=== PATIENT | female | born 1950 | race Caucasian/White ===

== ENCOUNTER 2016-08-02 14:37 | Observation (INO) | payer MEDICARE ==
[2016-08-02 17:06] LABS: AUTOMATED BASOPHIL 1.3 % (0-2); AUTOMATED EOSINOPHIL 0.6 % (0-5); AUTOMATED LYMPH 37.3 % (17-44); AUTOMATED NEUTROPHIL 50.8 % (45-76); MPV 10.9 fL (7.4-10.4)
[2016-08-02 17:22] LABS: BLOOD UREA NITROGEN 33 MG/DL (7-17); CALCIUM 9.6 MG/DL (8.4-10.2); CALCULATED OSMOLALITY 281 MOs/Kg (270-290); CHLORIDE 104 mEq/L (98-107); ETOH-MGDL < 10 mg/dL; GLUCOSE 122 MG/DL (70-99); SODIUM LEVEL 142 mEq/L (137-146); TOTAL PROTEIN 8.4 G/DL (6.3-8.2)
[2016-08-02 18:32] LABS: LEUKOCYTES/URINE NEG (NEGATIVE); NITRITE/URINE NEG (NEGATIVE); URINE OCCULT BLOOD NEG (NEG/TRACE)
[2016-08-02 18:34] LABS: AMORPHOUS 3+
[2016-08-02 18:41] LABS: ALL NEG? YES; MDMA* NEG (NEGATIVE); METHAMPHETAMINES NEG (NEGATIVE); OXYCODONE NEG (NEGATIVE)
--- NOTE | 2016-08-02 20:10 | EDPRACDOC ---
- General Information Chief Complaint: Psychiatric Illness Stated Complaint: PSYCH Time Seen by Provider: 08/02/16 19:54 Mode of Arrival: Law Enforcement Home Medications: Home Medications Digoxin [Lanoxin, Digitek] 0.125 mg PO DAILY #30 tablet 03/24/13 Pravastatin Sodium 40 mg PO QHS 07/23/14 Albuterol Sulfate [Proventil Hfa] 2 puff INH Q4-6H PRN 03/16/16 Pantoprazole Sodium [Protonix] 40 mg PO DAILY 05/24/16 Divalproex Sodium [Depakote ER] 500 mg PO BID #60 tab.sr.24h 05/25/16 Fluphenazine [Prolixin] 5 mg PO BID 08/02/16 Gabapentin 300 mg PO QAM 08/02/16 Gabapentin [Neurontin] 600 mg PO HS 08/02/16 Melatonin/Pyridoxine [Melatonin 3 mg Tablet] 6 mg PO .1HR PRIOR TO HS 08/02/16 Metoprolol Tartrate [Lopressor] 12.5 mg PO BID 08/02/16 Allergies/Adverse Reactions: Allergies Allergy/AdvReac Type Severity Reaction Status Date / Time amoxicillin trihydrate Allergy Unknown Rash-Genera Verified 08/02/16 16:41 [From Amoxil] lized lithium [[place]] Allergy Unknown Unknown Verified 08/02/16 16:41 Sulfa (Sulfonamide Allergy Unknown Unknown Verified 08/02/16 16:41 Antibiotics) [Sulfa(Sulfonamide Antibiotics)] trimethoprim Allergy Unknown Unknown Verified 08/02/16 16:41 - History of Present Illness Onset: today HPI: PT PRESENTS TODAY WITH IVC PAPERS FOR BIZARRE BEHAVIOR. PT IS NON-COMPLIANT WITH MEDICATIONS AND IS CURRENTLY SPEAKING IN SENTENCES THAT MAKE NO SENSE. "HARD LABOR. BLOOD EVERYWHERE." NO APPARENT DISTRESS. PT APPEARS TO BE RESPONDING TO INTERNAL STIMULI. Reason for Seeking Treatment: 911 Call Presents With: Reports: Bizarre Behavior Expresses: Reports: None Suicidal Plan: Reports: None Relevant History: Reports: Schizophrenia, Inpatient Treatment, Outpatient Treatment Medication Compliance: No Associated Signs and Symptoms: Reports: None ED Past Medical History - History Reviewed Yes Nurses notes reviewed and agree except as marked - Patient Medical History Neurological History: Reports: Cerebrovascular Accident (3 1/2 years ago) Cardiac History: Reports: Atrial Fibrillation, Hypertension, Hypercholesterolemia Respiratory History: Reports: Asthma, Emphysema GI/ History: Reports: Urinary Tract Infection, Gastroesophageal Reflux Psychological History: Reports: Depression, Anxiety, Bipolar Disorder. Denies: Substance Use Disorder Systemic History: Reports: Anemia. Denies: Cancer Surgical History: Reports: Other (repair of cleft lip & palate) - Family Medical History Reports: Hypertension (Father), Cardiac Disorders - Social Medical History Smoking Status: Heavy tobacco smoker (5 or more cigarettes/day or daily pipe/ cigar) Social History: Denies: Substance Use Disorder EDM Review of Systems - Review of Systems ROS Negative Except as Marked: Yes All systems reviewed and were negative except as marked ROS Unobtainable: Yes Review of systems cannot be obtained due to the patient's medical condition - Physical Exam Constitutional: No apparent distress, Alert Oriented to: Unable to Test Last recorded Vital Signs: Last Vital Signs Temp 98.1 F 08/02/16 16:41 Pulse 107 08/02/16 16:41 Resp 18 08/02/16 16:41 BP 157/103 H 08/02/16 16:41 Pulse Ox 95 08/02/16 16:41 Oxygen Pulse Oxygen Saturation 95 O2 Device Room Air Oxygen Flow Rate Fraction of Inspired Oxygen ( FIO2) - HEENT Head: Normal Eye Exam: Normal Neck: Normal, Denies Pain, Midline - Respiratory/Cardiovascular Respiratory: Normal - CTA Cardiovascular: Normal - GI Palpation: Normal Tenderness: Non tender - Musculoskeletal Back: Normal Extremities: Normal - Integumentary Skin: Normal Lymphatics: Normal - Neurologic Cerebellar: Unable to Test Mood Description: Calm - Results 08/02/16 16:49 08/02/16 16:49 WBC 8.9 xk/uL (3.8-10.8) 08/02/16 16:49 RBC 4.82 xM/uL (4.20-5.40) 08/02/16 16:49 Hgb 12.2 g/dL (12.0-16.0) 08/02/16 16:49 Hct 37.8 % (36-47) 08/02/16 16:49 MCV 78 fL (81-99) L 08/02/16 16:49 MCH 25.3 pg (27-32) L 08/02/16 16:49 MCHC 32.3 g/dl (33-36) L 08/02/16 16:49 RDW 15.2 % (11.5-14.5) H 08/02/16 16:49 Plt Count 380 xk/uL (130-400) 08/02/16 16:49 MPV 10.9 fL (7.4-10.4) H 08/02/16 16:49 Neut % (Auto) 50.8 % (45-76) 08/02/16 16:49 Lymph % (Auto) 37.3 % (17-44) 08/02/16 16:49 Frontier % (Auto) 10.0 % (3-10) 08/02/16 16:49 Eos % (Auto) 0.6 % (0-5) 08/02/16 16:49 Baso % (Auto) 1.3 % (0-2) 08/02/16 16:49 Absolute Neuts (auto) 4.45 xk/uL (1.7-8.2) 08/02/16 16:49 Absolute Lymphs (auto) 3.29 xk/uL (0.65-4.75) 08/02/16 16:49 Sodium 142 mEq/L (137-146) 08/02/16 16:49 Potassium 4.1 mEq/L (3.5-5.1) 08/02/16 16:49 Chloride 104 mEq/L (98-107) 08/02/16 16:49 Carbon Dioxide 24 mMOL/L (22-33) 08/02/16 16:49 Anion Gap 18 mEq/L (8-16) H 08/02/16 16:49 BUN 33 MG/DL (7-17) H 08/02/16 16:49 Creatinine 0.70 MG/DL (0.52-1.04) 08/02/16 16:49 Estimated GFR (MDRD) > 60 mL/min (>=60) 08/02/16 16:49 Glucose 122 MG/DL (70-99) H 08/02/16 16:49 Calculated Osmolality 281 MOs/Kg (270-290) 08/02/16 16:49 Calcium 9.6 MG/DL (8.4-10.2) 08/02/16 16:49 Total Bilirubin 0.7 MG/DL (0.2-1.3) 08/02/16 16:49 AST 39 IU/L (14-36) H 08/02/16 16:49 ALT 26 IU/L (9-52) 08/02/16 16:49 Alkaline Phosphatase 86 IU/L (55-165) 08/02/16 16:49 Total Protein 8.4 G/DL (6.3-8.2) H 08/02/16 16:49 Albumin 4.3 G/DL (3.5-5.0) 08/02/16 16:49 Urine Color Yellow 08/02/16 18:08 Urine Clarity Cldy 08/02/16 18:08 Urine pH 6.0 (5.0-8.0) 08/02/16 18:08 Ur Specific Currie >/=1.035 (1.003-1.035) 08/02/16 18:08 Urine Protein 1+ (NEG/TRACE) H 08/02/16 18:08 Urine Glucose (UA) Neg (NEGATIVE) 08/02/16 18:08 Urine Ketones 1+ (NEGATIVE) H 08/02/16 18:08 Urine Occult Blood Neg (NEG/TRACE) 08/02/16 18:08 Urine Nitrite Neg (NEGATIVE) 08/02/16 18:08 Urine Bilirubin Neg (NEGATIVE) 08/02/16 18:08 Urine Urobilinogen <2.0 MG/DL (0-1) 08/02/16 18:08 Ur Leukocyte Esterase Neg (NEGATIVE) 08/02/16 18:08 Urine WBC 2-5 (0-5) 08/02/16 18:08 Amorphous Sediment 3+ 08/02/16 18:08 Urine Bacteria Few (NEG/FEW) 08/02/16 18:08 Urine Opiates Screen Neg (NEGATIVE) 08/02/16 18:08 Ur Oxycodone Screen Neg (NEGATIVE) 08/02/16 18:08 Urine Methadone Screen Neg (NEGATIVE) 08/02/16 18:08 Ur Barbiturates Screen Neg (NEGATIVE) 08/02/16 18:08 Ur Tricyclics Screen Neg (NEGATIVE) 08/02/16 18:08 Ur Phencyclidine Scrn Neg (NEGATIVE) 08/02/16 18:08 Ur Amphetamines Screen Neg (NEGATIVE) 08/02/16 18:08 U Methamphetamines Scrn Neg (NEGATIVE) 08/02/16 18:08 Urine MDMA Screen Neg (NEGATIVE) 08/02/16 18:08 U Benzodiazepines Scrn Neg (NEGATIVE) 08/02/16 18:08 Urine Cocaine Screen Neg (NEGATIVE) 08/02/16 18:08 Ur THC Screen Neg (NEGATIVE) 08/02/16 18:08 Plasma/Serum Ethyl Alc % (<0.01) 08/02/16 16:49 Lab Results 08/02/16 08/02/16 08/02/16 18:08 18:08 16:49 WBC 8.9 RBC 4.82 Hgb 12.2 Hct 37.8 MCV 78 L MCH 25.3 L MCHC 32.3 L RDW 15.2 H Plt Count 380 MPV 10.9 H Neut % (Auto) 50.8 Lymph % (Auto) 37.3 Frontier % (Auto) 10.0 Eos % (Auto) 0.6 Baso % (Auto) 1.3 Absolute Neuts (auto) 4.45 Absolute Lymphs (auto) 3.29 Sodium Potassium Chloride Carbon Dioxide Anion Gap BUN Creatinine Estimated GFR (MDRD) Glucose Calculated Osmolality Calcium Total Bilirubin AST ALT Alkaline Phosphatase Total Protein Albumin Urine Color Yellow Urine Clarity Cldy Urine pH 6.0 Ur Specific Currie >/=1.035 Urine Protein 1+ H Urine Glucose (UA) Neg Urine Ketones 1+ H Urine Occult Blood Neg Urine Nitrite Neg Urine Bilirubin Neg Urine Urobilinogen <2.0 Ur Leukocyte Esterase Neg Urine WBC 2-5 Amorphous Sediment 3+ Urine Bacteria Few Urine Opiates Screen Neg Ur Oxycodone Screen Neg Urine Methadone Screen Neg Ur Barbiturates Screen Neg Ur Tricyclics Screen Neg Ur Phencyclidine Scrn Neg Ur Amphetamines Screen Neg U Methamphetamines Scrn Neg Urine MDMA Screen Neg U Benzodiazepines Scrn Neg Urine Cocaine Screen Neg Ur THC Screen Neg Plasma/Serum Ethyl Alc 08/02/16 16:49 WBC RBC Hgb Hct MCV MCH MCHC RDW Plt Count MPV Neut % (Auto) Lymph % (Auto) Frontier % (Auto) Eos % (Auto) Baso % (Auto) Absolute Neuts (auto) Absolute Lymphs (auto) Sodium 142 Potassium 4.1 Chloride 104 Carbon Dioxide 24 Anion Gap 18 H BUN 33 H Creatinine 0.70 Estimated GFR (MDRD) > 60 Glucose 122 H Calculated Osmolality 281 Calcium 9.6 Total Bilirubin 0.7 AST 39 H ALT 26 Alkaline Phosphatase 86 Total Protein 8.4 H Albumin 4.3 Urine Color Urine Clarity Urine pH Ur Specific [place]rie Urine Protein Urine Glucose (UA) Urine Ketones Urine Occult Blood Urine Nitrite Urine Bilirubin Urine Urobilinogen Ur Leukocyte Esterase Urine WBC Amorphous Sediment Urine Bacteria Urine Opiates Screen Ur Oxycodone Screen Urine Methadone Screen Ur Barbiturates Screen Ur Tricyclics Screen Ur Phencyclidine Scrn Ur Amphetamines Screen U Methamphetamines Scrn Urine MDMA Screen U Benzodiazepines Scrn Urine Cocaine Screen Ur THC Screen Plasma/Serum Ethyl Alc - Departure Disposition: Admit to Condition: Stable Final Diagnosis: Schizophrenia, Acute psychosis Decision to Admit Time: 20:11 Decision to admit date: 08/02/16 Decision to admit: from ED
[2016-08-02] MEDS ORDERED: MAGNESIUM HYDROXIDE 30 ML BOTTLE PO PRN (20:28)
[2016-08-02] MEDS ORDERED: Docusate Sodium 100 MG CAP PO PRN (20:28)
[2016-08-02] MEDS ORDERED: GUAIFENESIN 200 MG/10 ML UDC PO PRN (20:28)
[2016-08-02] MEDS ORDERED: ZOLPIDEM TARTRATE 5 MG TAB PO PRN (20:28)
[2016-08-02] MEDS ORDERED: ALBUTEROL 6.7 GM MDI INH PRN (20:28)
[2016-08-02] MEDS ORDERED: ONDANSETRON HCL 4 MG ODT TAB PO PRN (20:28)
[2016-08-02] MEDS ORDERED: ACETAMINOPHEN 325 MG/TAB TABLET PO PRN (20:28)
[2016-08-02] MEDS ORDERED: PYRIDOXINE PO SCH (20:30)
[2016-08-02] MEDS ORDERED: MELATONIN PO SCH (20:30)
[2016-08-02] MEDS ORDERED: NITROGLYCERINE 0.4 MG TAB SL PRN (20:37)
[2016-08-02] MEDS: FLUPHENAZINE 5 MG TAB PO SCH (21:35)
[2016-08-02] MEDS: PRAVASTATIN 40 MG TABLET PO SCH (21:35)
[2016-08-02] MEDS: DIVALPROEX SODIUM 500 MG EXT REL TAB PO SCH (21:35)
[2016-08-02] MEDS: GABAPENTIN 300 MG CAP PO SCH (21:35)
[2016-08-02] MEDS: METOPROLOL TARTRATE 25 MG TAB PO SCH (21:54)
[2016-08-02] MEDS: NICOTINE 21 MG PATCH TOP SCH (21:54)
[2016-08-03] MEDS: PANTOPRAZOLE 40 MG TAB PO SCH (05:43)
--- NOTE | 2016-08-03 08:52 | EDTUNOTE ---
- SOAP Note Patient Problems: Active Problems Acute psychosis (Acute) F23 Schizophrenia (Acute) F20.9 Time Seen By Provider: 08:35 SOAP Note: S: PT TO THE ED UNDER IVC DUE TO BIZARRE BEHAVIORS, PSYCHOSIS, MEDICATION NON- COMPLIANCE. PT VOICES NO COMPLAINTS TODAY, DENIES A/V HALLUCINATIONS, STATES "I 'VE SLEPT 12 HOURS AND I FEEL BETTER." O: WDWN FEMALE MURRAY X 3, VSS AFEBRILE LUNGS: CTAB CARDIAC: RRR PSYCH: CALM, COOPERATIVE A: ACUTE PSYCHOSIS SCHIZOPHRENIA P: CONT PSYCH/MED EVAL/MGMT
[2016-08-03] MEDS: LORATADINE 1 MG/1 ML PO SCH (10:10)
[2016-08-03] MEDS: METOPROLOL TARTRATE 25 MG TAB PO SCH ×2 (10:12→20:10)
[2016-08-03] MEDS: DIVALPROEX SODIUM 500 MG EXT REL TAB PO SCH ×2 (10:12→20:10)
[2016-08-03] MEDS: DIGOXIN 0.125 MG TAB PO SCH (10:12)
[2016-08-03] MEDS: CALCIUM CARBONATE 500 MG TAB PO SCH (10:14)
[2016-08-03] MEDS: FLUPHENAZINE 5 MG TAB PO SCH ×2 (10:14→20:10)
[2016-08-03] MEDS: VITAMINS,PRENATAL TABLET PO SCH (10:14)
[2016-08-03] MEDS: GABAPENTIN 300 MG CAP PO SCH ×2 (10:14→20:10)
[2016-08-03] MEDS: NICOTINE 21 MG PATCH TOP SCH (20:09)
[2016-08-03] MEDS: PRAVASTATIN 40 MG TABLET PO SCH (20:10)
[2016-08-04] MEDS: PANTOPRAZOLE 40 MG TAB PO SCH (06:03)
--- NOTE | 2016-08-04 09:01 | EDTUNOTE ---
- SOAP Note Patient Problems: Active Problems Acute psychosis (Acute) F23 Schizophrenia (Acute) F20.9 SOAP Note: 08/04/16 0850 Day 3 S: 66 y.o. F presented to ED for bizarre behavior and medication non compliance. Pt denies c/o this morning. O: Vital Signs: Temp:98.6 F HR: 84 BP: 138/71 RR: 20 Pox: 98%. Resting comfortably CTA RRR A: Acute Psychosis Schizophrenia P: Continue meds as directed for further stabilization.
[2016-08-04] MEDS: LORATADINE 1 MG/1 ML PO SCH (09:30)
[2016-08-04] MEDS: DIVALPROEX SODIUM 500 MG EXT REL TAB PO SCH ×2 (09:34→21:19)
[2016-08-04] MEDS: DIGOXIN 0.125 MG TAB PO SCH (09:35)
[2016-08-04] MEDS: METOPROLOL TARTRATE 25 MG TAB PO SCH ×2 (09:35→21:17)
[2016-08-04] MEDS: VITAMINS,PRENATAL TABLET PO SCH (09:36)
[2016-08-04] MEDS: CALCIUM CARBONATE 500 MG TAB PO SCH (09:36)
[2016-08-04] MEDS: GABAPENTIN 300 MG CAP PO SCH ×2 (09:36→21:19)
[2016-08-04] MEDS: FLUPHENAZINE 5 MG TAB PO SCH ×2 (09:36→21:19)
[2016-08-04] MEDS ORDERED: LORAZEPAM 1 MG TAB ONE (09:45)
[2016-08-04] MEDS: LORAZEPAM 1 MG TAB PO PRN ×2 (09:46→21:19)
[2016-08-04] MEDS: NICOTINE 21 MG PATCH TOP SCH (21:19)
[2016-08-04] MEDS: PRAVASTATIN 40 MG TABLET PO SCH (21:19)
[2016-08-05] MEDS: PANTOPRAZOLE 40 MG TAB PO SCH (06:09)
[2016-08-05] MEDS: DIVALPROEX SODIUM 500 MG EXT REL TAB PO SCH ×2 (07:54→20:47)
[2016-08-05] MEDS: LORATADINE 1 MG/1 ML PO SCH (07:54)
[2016-08-05] MEDS: DIGOXIN 0.125 MG TAB PO SCH (07:55)
[2016-08-05] MEDS: FLUPHENAZINE 5 MG TAB PO SCH ×2 (07:55→21:14)
[2016-08-05] MEDS: METOPROLOL TARTRATE 25 MG TAB PO SCH ×2 (07:56→20:46)
[2016-08-05] MEDS: GABAPENTIN 300 MG CAP PO SCH ×2 (07:56→20:46)
--- NOTE | 2016-08-05 08:33 | EDTUNOTE ---
- SOAP Note Patient Problems: Active Problems Acute psychosis (Acute) F23 Schizophrenia (Acute) F20.9 SOAP Note: 08/05/16 0830 Day 4 S: 66 y.o. F presented to ED for bizarre behavior and medication non compliance. Pt denies c/o this morning. O:Vital Signs: Temp:97.7 F HR: 76 BP: 132/68 RR: 18 Pox: 96%. Resting comfortably CTA RRR A: Acute Psychosis Schizophrenia P: Continue meds as directed for further stabilization.
[2016-08-05] MEDS: VITAMINS,PRENATAL TABLET PO SCH (11:34)
[2016-08-05] MEDS: CALCIUM CARBONATE 500 MG TAB PO SCH (11:34)
[2016-08-05] MEDS ORDERED: LORAZEPAM 1 MG TAB ONE (20:44)
[2016-08-05] MEDS: NICOTINE 21 MG PATCH TOP SCH (20:45)
[2016-08-05] MEDS: LORAZEPAM 1 MG TAB PO PRN (20:46)
[2016-08-05] MEDS: PRAVASTATIN 40 MG TABLET PO SCH (20:46)
[2016-08-06] MEDS: PANTOPRAZOLE 40 MG TAB PO SCH (05:43)
[2016-08-06] MEDS: LORATADINE 1 MG/1 ML PO SCH (08:57)
[2016-08-06] MEDS: GABAPENTIN 300 MG CAP PO SCH ×2 (08:57→21:11)
[2016-08-06] MEDS: METOPROLOL TARTRATE 25 MG TAB PO SCH ×2 (08:57→21:11)
[2016-08-06] MEDS: DIGOXIN 0.125 MG TAB PO SCH (08:57)
[2016-08-06] MEDS: DIVALPROEX SODIUM 500 MG EXT REL TAB PO SCH ×2 (08:57→21:10)
[2016-08-06] MEDS: FLUPHENAZINE 5 MG TAB PO SCH ×2 (08:58→21:11)
--- NOTE | 2016-08-06 08:58 | EDTUNOTE ---
- SOAP Note Patient Problems: Active Problems Acute psychosis (Acute) F23 Schizophrenia (Acute) F20.9 Time Seen By Provider: 08:57 SOAP Note: 08/06/16 0857 Day 5 S: 66 y.o. F presented to ED for bizarre behavior and medication non compliance. Pt denies c/o this morning. Patient asking when she is going to [place], it is difficult to determine what the patient is asking but she is AAO x 3 at this time and answers most questions appropriately. O:VSS CTAB RRR Calm and cooperative A: Acute Psychosis Schizophrenia P: Continue meds as directed for further stabilization.
[2016-08-06] MEDS: VITAMINS,PRENATAL TABLET PO SCH (11:48)
[2016-08-06] MEDS: CALCIUM CARBONATE 500 MG TAB PO SCH (11:48)
[2016-08-06] MEDS: NICOTINE 21 MG PATCH TOP SCH (21:12)
[2016-08-06] MEDS: PRAVASTATIN 40 MG TABLET PO SCH (21:12)
[2016-08-07] MEDS: PANTOPRAZOLE 40 MG TAB PO SCH (06:40)
[2016-08-07] MEDS: LORATADINE 1 MG/1 ML PO SCH (08:41)
[2016-08-07] MEDS: DIGOXIN 0.125 MG TAB PO SCH (08:41)
[2016-08-07] MEDS: DIVALPROEX SODIUM 500 MG EXT REL TAB PO SCH ×2 (08:41→22:04)
[2016-08-07] MEDS: METOPROLOL TARTRATE 25 MG TAB PO SCH ×2 (08:42→22:03)
[2016-08-07] MEDS: GABAPENTIN 300 MG CAP PO SCH ×2 (08:43→22:03)
[2016-08-07] MEDS: CALCIUM CARBONATE 500 MG TAB PO SCH (08:44)
[2016-08-07] MEDS: VITAMINS,PRENATAL TABLET PO SCH (08:44)
[2016-08-07] MEDS: FLUPHENAZINE 5 MG TAB PO SCH ×2 (08:44→22:04)
--- NOTE | 2016-08-07 10:33 | EDTUNOTE ---
- SOAP Note Patient Problems: Active Problems Acute psychosis (Acute) F23 Schizophrenia (Acute) F20.9 SOAP Note: 08/06/16 0857 Day 5 S: 66 y.o. F presented to ED for bizarre behavior and medication non compliance. Pt denies c/o this morning. Pt is A&O x 3 at this time and answers most questions appropriately. Pt has no c/o at this time. O:VSS CTAB RRR Calm and cooperative A: Acute Psychosis Schizophrenia P: Continue meds as directed for further stabilization.
[2016-08-07] MEDS: LORAZEPAM 1 MG TAB PO PRN (11:41)
[2016-08-07] MEDS: NICOTINE 21 MG PATCH TOP SCH (22:03)
[2016-08-07] MEDS: PRAVASTATIN 40 MG TABLET PO SCH (22:03)
[2016-08-08] MEDS: PANTOPRAZOLE 40 MG TAB PO SCH (07:09)
[2016-08-08] MEDS: DIVALPROEX SODIUM 500 MG EXT REL TAB PO SCH ×2 (08:15→21:21)
[2016-08-08] MEDS: METOPROLOL TARTRATE 25 MG TAB PO SCH ×2 (08:17→21:21)
[2016-08-08] MEDS: FLUPHENAZINE 5 MG TAB PO SCH ×2 (08:18→21:24)
[2016-08-08] MEDS: LORATADINE 1 MG/1 ML PO SCH (08:18)
[2016-08-08] MEDS: DIGOXIN 0.125 MG TAB PO SCH (08:18)
[2016-08-08] MEDS: GABAPENTIN 300 MG CAP PO SCH ×2 (08:19→21:24)
--- NOTE | 2016-08-08 10:33 | EDTUNOTE ---
- SOAP Note Patient Problems: Active Problems Acute psychosis (Acute) F23 Schizophrenia (Acute) F20.9 SOAP Note: 08/06/16 0857 Day 5 S: 66 y.o. F presented to ED for bizarre behavior and medication non compliance. Pt denies c/o this morning. Pt is A&O x 3 at this time and answers most questions appropriately. Pt has no c/o at this time. O:BP 115/54, OTHERWISE, VSS CTAB RRR Calm and cooperative A: Acute Psychosis Schizophrenia P: Continue meds as directed for further stabilization, will cont obs/med/psych management until proper disposition can be determined.
[2016-08-08] MEDS ORDERED: [UNRECOGNIZED DRUG - OTHER] ID ONE (11:13)
[2016-08-08] MEDS ORDERED: TUBERCULIN ID ONE (11:13)
[2016-08-08] MEDS: CALCIUM CARBONATE 500 MG TAB PO SCH (11:50)
[2016-08-08] MEDS: VITAMINS,PRENATAL TABLET PO SCH (11:54)
[2016-08-08] MEDS: PRAVASTATIN 40 MG TABLET PO SCH (21:24)
[2016-08-08] MEDS: NICOTINE 21 MG PATCH TOP SCH (21:24)
[2016-08-09] MEDS: PANTOPRAZOLE 40 MG TAB PO SCH (06:28)
--- NOTE | 2016-08-09 08:47 | EDTUNOTE ---
- SOAP Note Patient Problems: Active Problems Acute psychosis (Acute) F23 Schizophrenia (Acute) F20.9 Time Seen By Provider: 08:46 SOAP Note: S: 66 y.o. F presented to ED for bizarre behavior and medication non compliance. Pt denies c/o this morning. Pt is A&O x 3 at this time and answers most questions appropriately. Pt has no c/o at this time. O:VSS Calm and cooperative A: Acute Psychosis Schizophrenia P: Continue meds as directed for further stabilization, will cont obs/med/psych management until proper disposition can be determined.
[2016-08-09] MEDS: LORATADINE 1 MG/1 ML PO SCH (10:00)
[2016-08-09] MEDS: DIVALPROEX SODIUM 500 MG EXT REL TAB PO SCH ×2 (10:05→21:16)
[2016-08-09] MEDS: DIGOXIN 0.125 MG TAB PO SCH (10:09)
[2016-08-09] MEDS: METOPROLOL TARTRATE 25 MG TAB PO SCH ×2 (10:09→21:17)
[2016-08-09] MEDS: CALCIUM CARBONATE 500 MG TAB PO SCH (10:10)
[2016-08-09] MEDS: VITAMINS,PRENATAL TABLET PO SCH (10:10)
[2016-08-09] MEDS: GABAPENTIN 300 MG CAP PO SCH ×2 (10:10→21:16)
[2016-08-09] MEDS: FLUPHENAZINE 5 MG TAB PO SCH ×2 (10:10→21:16)
[2016-08-09] MEDS: NICOTINE 21 MG PATCH TOP SCH (21:16)
[2016-08-09] MEDS: PRAVASTATIN 40 MG TABLET PO SCH (21:17)
[2016-08-10] MEDS: PANTOPRAZOLE 40 MG TAB PO SCH ×2 (08:46→08:47)
[2016-08-10] MEDS: LORATADINE 1 MG/1 ML PO SCH (08:46)
[2016-08-10] MEDS: DIGOXIN 0.125 MG TAB PO SCH (08:47)
[2016-08-10] MEDS: DIVALPROEX SODIUM 500 MG EXT REL TAB PO SCH ×2 (08:47→21:09)
[2016-08-10] MEDS: METOPROLOL TARTRATE 25 MG TAB PO SCH ×2 (08:48→21:08)
[2016-08-10] MEDS: GABAPENTIN 300 MG CAP PO SCH ×2 (08:48→21:09)
[2016-08-10] MEDS: FLUPHENAZINE 5 MG TAB PO SCH ×2 (08:49→21:10)
--- NOTE | 2016-08-10 08:52 | EDTUNOTE ---
- SOAP Note Patient Problems: Active Problems Acute psychosis (Acute) F23 Schizophrenia (Acute) F20.9 Time Seen By Provider: 08:52 SOAP Note: S: 66 y.o. F presented to ED for bizarre behavior and medication non compliance. Pt denies c/o this morning. Pt is A&O x 3 at this time and answers most questions appropriately. Pt has no c/o at this time. O:VSS, afebrile CTAB RRR Calm and cooperative A: Acute Psychosis Schizophrenia P: Continue meds as directed for further stabilization, will cont obs/med/psych management until proper disposition can be determined.
[2016-08-10] MEDS: CALCIUM CARBONATE 500 MG TAB PO SCH (11:11)
[2016-08-10] MEDS: VITAMINS,PRENATAL TABLET PO SCH (11:11)
[2016-08-10] MEDS: PRAVASTATIN 40 MG TABLET PO SCH (21:09)
[2016-08-10] MEDS: NICOTINE 21 MG PATCH TOP SCH (21:10)
[2016-08-11] MEDS: PANTOPRAZOLE 40 MG TAB PO SCH (09:10)
[2016-08-11] MEDS: DIVALPROEX SODIUM 500 MG EXT REL TAB PO SCH ×2 (09:12→20:53)
[2016-08-11] MEDS: LORATADINE 1 MG/1 ML PO SCH (09:12)
[2016-08-11] MEDS: DIGOXIN 0.125 MG TAB PO SCH (09:13)
[2016-08-11] MEDS: METOPROLOL TARTRATE 25 MG TAB PO SCH ×2 (09:13→20:54)
[2016-08-11] MEDS: GABAPENTIN 300 MG CAP PO SCH ×2 (09:15→20:54)
[2016-08-11] MEDS: FLUPHENAZINE 5 MG TAB PO SCH ×2 (09:16→20:55)
--- NOTE | 2016-08-11 09:27 | EDTUNOTE ---
- SOAP Note Patient Problems: Active Problems Acute psychosis (Acute) F23 Schizophrenia (Acute) F20.9 Time Seen By Provider: 08:30 SOAP Note: S: 66 y.o. F presented to ED for bizarre behavior and medication non compliance. Pt denies c/o this morning. Pt is A&O x 3 at this time and answers most questions appropriately. Pt has no c/o at this time. O:VSS, afebrile CTAB RRR Calm and cooperative A: Acute Psychosis Schizophrenia P: Continue meds as directed for further stabilization, will cont obs/med/psych management until proper disposition can be determined.
[2016-08-11] MEDS: CALCIUM CARBONATE 500 MG TAB PO SCH (12:22)
[2016-08-11] MEDS: VITAMINS,PRENATAL TABLET PO SCH (12:22)
[2016-08-11] MEDS: NICOTINE 21 MG PATCH TOP SCH (20:55)
[2016-08-11] MEDS: PRAVASTATIN 40 MG TABLET PO SCH (20:55)
[2016-08-12] MEDS: PANTOPRAZOLE 40 MG TAB PO SCH (06:03)
[2016-08-12] MEDS: METOPROLOL TARTRATE 25 MG TAB PO SCH ×2 (08:08→20:45)
[2016-08-12] MEDS: DIGOXIN 0.125 MG TAB PO SCH (08:08)
[2016-08-12] MEDS: GABAPENTIN 300 MG CAP PO SCH ×2 (08:09→20:46)
[2016-08-12] MEDS: FLUPHENAZINE 5 MG TAB PO SCH ×2 (08:09→20:46)
[2016-08-12] MEDS: DIVALPROEX SODIUM 500 MG EXT REL TAB PO SCH ×2 (08:09→20:46)
[2016-08-12] MEDS: LORATADINE 1 MG/1 ML PO SCH (08:09)
--- NOTE | 2016-08-12 09:11 | EDTUNOTE ---
- SOAP Note Patient Problems: Active Problems Acute psychosis (Acute) F23 Schizophrenia (Acute) F20.9 SOAP Note: S: 66 y.o. F presented to ED for bizarre behavior and medication non compliance. Pt denies c/o this morning. Pt is A&O x 3 at this time and answers most questions appropriately. Pt has no c/o at this time. O:VSS, afebrile CTAB RRR Calm and cooperative A: Acute Psychosis Schizophrenia P: Continue meds as directed for further stabilization, will cont obs/med/psych management until proper disposition can be determined.
[2016-08-12] MEDS: CALCIUM CARBONATE 500 MG TAB PO SCH (11:32)
[2016-08-12] MEDS: VITAMINS,PRENATAL TABLET PO SCH (11:32)
[2016-08-12 12:04] VITALS: BMI 20.2
[2016-08-12 12:40] LABS: BLOOD UREA NITROGEN 21 MG/DL (7-17); CALCIUM 9.1 MG/DL (8.4-10.2); CALCULATED OSMOLALITY 275 MOs/Kg (270-290); CHLORIDE 105 mEq/L (98-107); GLUCOSE 114 MG/DL (70-99); SODIUM LEVEL 141 mEq/L (137-146)
--- NOTE | 2016-08-12 14:26 | DIRPT ---
CLINICAL DATA: Altered mental status. EXAM: CT HEAD WITHOUT CONTRAST TECHNIQUE: Contiguous axial images were obtained from the base of the skull through the vertex without intravenous contrast. COMPARISON: Head CT dated 11/13/2015. FINDINGS: There is generalized brain atrophy with commensurate dilatation of the ventricles and sulci, stable compared to the previous exam. Mild chronic small vessel ischemic change again noted within the deep periventricular white matter regions, also stable. There is no mass, hemorrhage, edema or other evidence of acute parenchymal abnormality. No extra-axial hemorrhage. There are chronic calcified atherosclerotic changes of the large vessels at the skull base. Osseous structures are unremarkable. Visualized upper paranasal sinuses are clear. Superficial soft tissues are unremarkable. IMPRESSION: 1. Atrophy and chronic ischemic changes in the white matter. 2. No acute findings. No intracranial mass, hemorrhage or edema. Electronically Signed By: Kael Gardner M.D. On: 08/12/2016 14:23
[2016-08-12] MEDS: PRAVASTATIN 40 MG TABLET PO SCH (20:46)
[2016-08-12] MEDS: NICOTINE 21 MG PATCH TOP SCH (20:49)
[2016-08-12] MEDS: DONEPEZIL HCL 5 MG TAB PO SCH (20:57)
[2016-08-13] MEDS: PANTOPRAZOLE 40 MG TAB PO SCH (05:27)
[2016-08-13] MEDS: METOPROLOL TARTRATE 25 MG TAB PO SCH (08:33)
[2016-08-13] MEDS: GABAPENTIN 300 MG CAP PO SCH (08:35)
[2016-08-13] MEDS: DIGOXIN 0.125 MG TAB PO SCH (08:36)
[2016-08-13] MEDS: FLUPHENAZINE 5 MG TAB PO SCH (08:36)
[2016-08-13] MEDS: DIVALPROEX SODIUM 500 MG EXT REL TAB PO SCH (08:36)
[2016-08-13] MEDS: LORATADINE 1 MG/1 ML PO SCH (08:37)
[2016-08-13] MEDS: CALCIUM CARBONATE 500 MG TAB PO SCH (12:24)
[2016-08-13] MEDS: VITAMINS,PRENATAL TABLET PO SCH (12:25)
[2016-08-14] MEDS: FLUPHENAZINE 5 MG TAB PO SCH ×3 (00:45→21:03)
[2016-08-14] MEDS: METOPROLOL TARTRATE 25 MG TAB PO SCH ×3 (00:45→21:03)
[2016-08-14] MEDS: DIVALPROEX SODIUM 500 MG EXT REL TAB PO SCH ×3 (00:45→21:03)
[2016-08-14] MEDS: GABAPENTIN 300 MG CAP PO SCH ×3 (00:45→21:03)
[2016-08-14] MEDS: PRAVASTATIN 40 MG TABLET PO SCH ×2 (00:46→21:03)
[2016-08-14] MEDS: NICOTINE 21 MG PATCH TOP SCH ×2 (00:46→21:00)
[2016-08-14] MEDS: DONEPEZIL HCL 5 MG TAB PO SCH ×2 (00:56→21:03)
[2016-08-14] MEDS: PANTOPRAZOLE 40 MG TAB PO SCH (08:30)
[2016-08-14] MEDS: DIGOXIN 0.125 MG TAB PO SCH (08:33)
[2016-08-14] MEDS: LORATADINE 1 MG/1 ML PO SCH (08:33)
--- NOTE | 2016-08-14 08:41 | EDTUNOTE ---
- SOAP Note Patient Problems: Active Problems Acute psychosis (Acute) F23 Schizophrenia (Acute) F20.9 SOAP Note: 08/14/16 0835 Day 12 S: 66 y.o. F presented to Ed for bizarre behavior and medication non compliance. Pt denies c/o this morning. Pt states she is feeling better than when she first arrived in hospital. O: Vital Signs: Temp:97.8 F HR: 66 BP: 128/69 RR: 18 Pox: 96%. Resting comfortably. CTA RRR A: Schizophrenia Acute Psychosis - resolved P: Continue meds as directed for further stabilization. Social work consult for assistance in shelter or assisted living placement.
[2016-08-14] MEDS: VITAMINS,PRENATAL TABLET PO SCH (10:54)
[2016-08-14] MEDS: CALCIUM CARBONATE 500 MG TAB PO SCH (10:54)
[2016-08-15] MEDS: PANTOPRAZOLE 40 MG TAB PO SCH (06:10)
--- NOTE | 2016-08-15 08:31 | EDTUNOTE ---
- SOAP Note Patient Problems: Active Problems Acute psychosis (Acute) F23 Schizophrenia (Acute) F20.9 SOAP Note: 08-15-16 0825 Day 13 S: 66 y.o. F presented to Ed for bizarre behavior and medication non compliance. Pt denies c/o this morning. Pt states she is feeling better than when she first arrived in hospital. O: Vital Signs: Temp:97.7 F HR: 66 BP: 136/67 RR: 18 Pox: 96%. Resting comfortably. CTA RRR A: Dementia Schizophrenia P: Continue meds as directed for further stabilization. Social work consult for assistance in custodial or assisted living placement.
[2016-08-15] MEDS: LORATADINE 1 MG/1 ML PO SCH (08:46)
[2016-08-15] MEDS: DIGOXIN 0.125 MG TAB PO SCH (08:47)
[2016-08-15] MEDS: DIVALPROEX SODIUM 500 MG EXT REL TAB PO SCH ×2 (08:47→20:48)
[2016-08-15] MEDS: Loratadine 10 MG TAB PO SCH (08:47)
[2016-08-15] MEDS: METOPROLOL TARTRATE 25 MG TAB PO SCH ×2 (08:47→20:48)
[2016-08-15] MEDS: FLUPHENAZINE 5 MG TAB PO SCH ×2 (08:48→20:49)
[2016-08-15] MEDS: GABAPENTIN 300 MG CAP PO SCH ×2 (08:48→20:48)
[2016-08-15] MEDS: VITAMINS,PRENATAL TABLET PO SCH (11:25)
[2016-08-15] MEDS: CALCIUM CARBONATE 500 MG TAB PO SCH (11:25)
[2016-08-15] MEDS: NICOTINE 21 MG PATCH TOP SCH (20:48)
[2016-08-15] MEDS: DONEPEZIL HCL 5 MG TAB PO SCH (20:48)
[2016-08-15] MEDS: PRAVASTATIN 40 MG TABLET PO SCH (20:49)
[2016-08-16] MEDS: PANTOPRAZOLE 40 MG TAB PO SCH (06:18)
[2016-08-16] MEDS: DIGOXIN 0.125 MG TAB PO SCH (08:51)
[2016-08-16] MEDS: Loratadine 10 MG TAB PO SCH (08:51)
[2016-08-16] MEDS: DIVALPROEX SODIUM 500 MG EXT REL TAB PO SCH (08:51)
[2016-08-16] MEDS: METOPROLOL TARTRATE 25 MG TAB PO SCH (08:52)
[2016-08-16] MEDS: FLUPHENAZINE 5 MG TAB PO SCH (08:52)
[2016-08-16] MEDS: GABAPENTIN 300 MG CAP PO SCH (08:52)
[2016-08-16] MEDS: CALCIUM CARBONATE 500 MG TAB PO SCH (11:19)
[2016-08-16] MEDS: VITAMINS,PRENATAL TABLET PO SCH (11:20)
--- NOTE | 2016-08-16 11:49 | EDTUNOTE ---
- SOAP Note Patient Problems: Active Problems Acute psychosis (Acute) F23 Schizophrenia (Acute) F20.9 Time Seen By Provider: 08:46 SOAP Note: 08-16-16 08 Day 14 S: 66 y.o. F presented to Ed for bizarre behavior and medication non compliance. Pt denies c/o this morning. Pt states she is feeling better than when she first arrived in hospital. O: Vital Signs: Temp: 98.4 F HR: 67 BP: 117/62 RR: 20 Pox: 98%. Resting comfortably. Eating breakfast during exam. CTA RRR A: Dementia Schizophrenia P: Continue meds as directed for further stabilization. Patient to be placed today at [facility] in [place].
[2016-08-16 12:55] VITALS: BP 105/62; PULSE 64; TEMP 98.7
== END 2016-08-16 12:45 ==
LOC: ED 14:37 → INTOOBSV 20:28 → TUOBSINP 20:28 → EDINP 08-07 19:17 → TUOBSINP 08-08 17:40 → EDINP 08-12 07:52 → TUOBSINP 08-13 01:15 → EDINP 08-13 08:28 → TUOBSINP 08-14 07:04
PROVIDERS: ADMIT Physician Assistant; ATTEND Physician Assistant
DX: F23 Brief psychotic disorder (principal); F20.9 Schizophrenia, unspecified; F03.90 Unspecified dementia, unspecified severity, without behavioral disturbance, psychotic disturbance, mood disturbance, and anxiety; I10 Essential (primary) hypertension; J45.909 Unspecified asthma, uncomplicated; Z91.14 Patient's other noncompliance with medication regimen; J43.9 Emphysema, unspecified; Z86.73 Personal history of transient ischemic attack (TIA), and cerebral infarction without residual deficits; I48.91 Unspecified atrial fibrillation; F17.210 Nicotine dependence, cigarettes, uncomplicated
CPT/HCPCS: 36415; 70450; 80048; 80053; 80162; 80307; 81001; 82607; 84443; 85025; 85651; 86580; 86592; 99285; A9270; G0378; J3490